=== PATIENT | male | born 1985 | race Caucasian/White ===

== ENCOUNTER 2022-03-24 01:30 | Emergency (ER) | payer OTHER, SELFPAY ==
[2022-03-24 01:34] VITALS: BP 156/109; PULSE 101; RESP 18; TEMP 36.3; O2SAT 97
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
[2022-03-24] MEDS: LIDOCAINE HCL 1% LOCAL INJ 20 ML VIAL (01:41)
== END 2022-03-24 02:03 | disposition home or self-care (01) ==
LOC: ANHED 01:59
PROVIDERS: Emergency Provider Nurse Practitioner Family; PCP Emergency Medicine
DX: S01.411A Laceration without foreign body of right cheek and temporomandibular area, initial encounter (principal); Y04.0XXA Assault by unarmed brawl or fight, initial encounter
CPT/HCPCS: 12011; 99282